=== PATIENT | male | born 1980 ===

== ENCOUNTER 2017-06-17 10:50 | Emergency (ER) | payer OTHER ==
--- NOTE | 2017-07-05 11:52 | UC ---
Clemente Bateman Alfonso, scribed for Lizbeth Tellez MD on 06/17/17 at 1258 . Throat Pain/Nasal Abisai HPI - HPI Summary HPI Summary: This patient is a 27 year old M presenting to [facility] with a chief complaint of sore throat since three days ago. The patient rates the pain 3/10 in severity. Symptoms aggravated by nothing. Symptoms alleviated by nothing. Patient reports pain with swallowing, insomnia secondary to pain, productive cough (since last night and with yellow phlegm), an ear ache, and low back pain. Patient denies fever, urinary symptoms, and headache. He denies recent travels. Patients medications reviewed this visit. Patients allergies reviewed this visit. - History of Current Complaint Chief Complaint: UCRespiratory Stated Complaint: SORE THROAT Time Seen by Provider: 06/17/17 12:44 Hx Obtained From: Patient Onset/Duration: Sudden Onset, Lasting Days - 3, Still Present Severity: Moderate Pain Intensity: 3 Pain Scale Used: 0-10 Numeric Cough: Productive Associated Signs & Symptoms: Positive: Other - Patient reports pain with swallowing, insomnia secondary to pain, productive cough (since last night and with yellow phlegm), an ear ache, and low back pain. Patient denies fever, urinary symptoms, and headache. - Allergies/Home Medications Allergies/Adverse Reactions: Allergies Allergy/AdvReac Type Severity Reaction Status Date / Time No Known Allergies Allergy Verified 06/17/17 11:29 Home Medications: Home Medications NK [No Home Medications Reported] 06/17/17 [History Confirmed 06/17/17] PMH/Surg Hx/FS Hx/Imm Hx Previously Healthy: Yes - Surgical History Surgical History: None - Family History Known Family History: Negative: Cardiac Disease - Social History Alcohol Use: None Substance Use Type: None Smoking Status (MU): Never Smoked Tobacco Review of Systems Constitutional: Negative ENT: Sore Throat, Ear Ache, Other - Positive pain with swallowing Respiratory: Cough Genitourinary: Negative Musculoskeletal: Other: - Low back pain Neurological: Other - Insomnia secondary to pain; negative headache. All Other Systems Reviewed And Are Negative: Yes Physical Exam Triage Information Reviewed: Yes Appearance: No Pain Distress Vital Signs: Initial Vital Signs Temp 98.4 F 06/17/17 11:29 Pulse 78 06/17/17 11:29 Resp 16 06/17/17 11:29 BP 120/83 06/17/17 11:29 Pulse Ox 99 06/17/17 11:29 Vital Signs Reviewed: Yes Eye Exam: Normal ENT: Positive: Other: - Erythema pharynx. Edema and erythema at tonsils. Tonsils are equal. No sores. Right submandibular lymph node. Neck: Positive: Supple Respiratory Exam: Normal Respiratory: Positive: Other: - no dyspnea, no tachypnea, normal respiratory rate Cardiovascular: Positive: RRR, Other: - good general skin color, good capillary refill Abdomen Description: Positive: Nontender, No Organomegaly, Soft Bowel Sounds: Positive: Present Musculoskeletal Exam: Normal Musculoskeletal: Positive: Strength Intact Neurological Exam: Normal Neurological: Positive: Alert Psychological: Positive: Age Appropriate Behavior Skin Exam: Normal Throat Pain/Nasal Course/Dx - Course Course Of Treatment: 13:40 ready for discharge. However, pt reports concern that he may have increased freq / urg at night (no pain), as such, he requests a urine dip. Urine dip reviewed with pt. Will f/u with pcp. RST neg. Likely viral etiology. Suspect concomitant low back strain. Recommend f/u PCP, consider ostoepathic referral re back issues. Mr. Moura was given the opportunity to ask several questions, to which I answered to the best of my ability. - Differential Dx/Diagnosis Provider Diagnoses: pharyngitis. viral syndrome. low back strain Discharge - Discharge Plan Condition: Stable Disposition: HOME Patient Education Materials: Ibuprofen (By mouth), Pharyngitis (ED), Low Back Strain (ED) Referrals: [facility] [place] [facility] REFERRAL [Outside] Additional Instructions: Follow up with a primary care physician as soon as you are able for general wellness care. Trace blood in urine on dipstick. This will need to be rechecked by your primary care physician. A culture has been ordered, you will be notified if positive results requiring treatment. Follow up with Dr. Drake Ayers - call [phone] office - for appointment regarding your back. Seek medical attention for worse or new problems in the meantime. The documentation as recorded by the Clemente colby Alfonso accurately reflects the service I personally performed and the decisions made by me, Lizbeth Tellez MD.
== END 2017-06-17 14:15 | disposition home or self-care (01) ==
LOC: EDBD → UCEAST 10:50
DX: J02.9 Acute pharyngitis, unspecified (principal); B34.9 Viral infection, unspecified; S39.012A Strain of muscle, fascia and tendon of lower back, initial encounter; X58.XXXA Exposure to other specified factors, initial encounter; Y93.9 Activity, unspecified; Y92.9 Unspecified place or not applicable; R35.0 Frequency of micturition; R39.15 Urgency of urination
CPT/HCPCS: 81003; 87086; 87502; 87651; 99202; G0463